=== PATIENT | female | born 1960 | race Caucasian/White ===

== ENCOUNTER → 2024-04-28 | Outpatient (CLI) | payer OTHER, SELFPAY ==
--- NOTE | 2024-04-28 | XR_ITS ---
Examination: Screening digital mammography, bilateral Computer aided detection 3-D breast Tomosynthesis, bilateral Date and time of exam: April 28, 2024 0953 hours Compared to mammograms dating to 02/07/2016 Indication: Screening Technique: Nonmagnified MLO, CC views of the breasts to been obtained, reconstructed from 3-D Tomosynthesis images. R2 computer aided detection program utilized for evaluation of suspicious masses and/or abnormal calcifications. 3-D Tomosynthesis images obtained. Findings: Scattered areas of fibroglandular density Benign calcifications. Skin lesion upper left breast No interval suspicious masses Impression: BI-RADS category II: Benign Findings. Recommend 1 year follow-up mammogram.
== END | disposition home or self-care (01) ==
LOC: CDIM 09:45
PROVIDERS: PCP Family Medicine; Referring Provider Family Medicine; Visit Provider Family Medicine
DX: Z12.31 Encounter for screening mammogram for malignant neoplasm of breast (principal); R92.323 Mammographic fibroglandular density, bilateral breasts; R92.1 Mammographic calcification found on diagnostic imaging of breast
CPT/HCPCS: 77063; 77067

== ENCOUNTER → 2024-05-31 | Outpatient (CLI) | payer OTHER, SELFPAY ==
[2024-05-31 10:34] LABS: Uric Acid 4.6 mg/dL (3.1-7.8)
== END | disposition home or self-care (01) ==
PROVIDERS: PCP Family Medicine; Referring Provider Family Medicine; Visit Provider Family Medicine
DX: E79.0 Hyperuricemia without signs of inflammatory arthritis and tophaceous disease (principal)
CPT/HCPCS: 36415; 84550

== ENCOUNTER → 2024-08-11 | Outpatient (CLI) | payer OTHER, SELFPAY ==
--- NOTE | 2024-08-11 13:52 | XR_ITS ---
Examination: Knee, right , 3 views Technique: Knee AP, lateral, oblique 3 views Date and time of exam: August 11, 2024 1354 hours INDICATIONS: Right knee pain beginning 6 years ago. FINDINGS: Moderate to advanced narrowing medial joint space No fracture Mild osteoarthritis patellofemoral joint IMPRESSION: Moderate to advanced narrowing medial joint space
--- NOTE | 2024-08-11 13:52 | XR_ITS ---
Examination: Bilateral wrists 6 views TECHNIQUE: AP oblique lateral each wrist total 6 views Exam date and time: August 11, 2024 1402 hours INDICATIONS: Bilateral wrist pain beginning 3 months ago. FINDINGS: Moderate osteopenia Mild diffuse narrowing radiocarpal intercarpal first carpometacarpal joints Small benign area cystic change in the triquetrum right wrist No avascular necrosis IMPRESSION: Mild diffuse osteoarthritis as above
--- NOTE | 2024-08-11 13:52 | XR_ITS ---
Examination: Bilateral hands, 6 views. Technique: AP, Oblique, Lateral each hand total 6 views Date and time of exam: August 11, 2024 1354 hours INDICATIONS: Bilateral hand pain 3 months FINDINGS: Moderate juxta-articular bone demineralization Mild osteoarthritis distal interphalangeal joints second through fifth digits and interphalangeal joint first digit bilaterally Mild to moderate osteoarthritis first carpometacarpal joints No erosive arthritis No opaque foreign bodies IMPRESSION: Osteoarthritis as above
== END | disposition home or self-care (01) ==
PROVIDERS: PCP Family Medicine; Visit Provider Family Medicine
DX: M25.861 Other specified joint disorders, right knee (principal); M19.042 Primary osteoarthritis, left hand; M19.041 Primary osteoarthritis, right hand; M18.0 Bilateral primary osteoarthritis of first carpometacarpal joints; M19.032 Primary osteoarthritis, left wrist; M19.031 Primary osteoarthritis, right wrist
CPT/HCPCS: 73110; 73130; 73562

== ENCOUNTER → 2024-12-08 | Outpatient (CLI) | payer OTHER, SELFPAY ==
--- NOTE | 2024-12-08 09:45 | XR_ITS ---
Examination: MRI right hip without intravenous contrast. Date and time of exam: December 08, 2024 1007 hours INDICATIONS: Right hip pain 10 years joint clicking Technique: Multiple MRI images of the right hip have been obtained T1 weighted coronal sections, TR 500, TE 12 Proton density coronal fat saturated images, TR 3000, TE 71 T2-weighted coronal images, 5850, TE 104 T1-weighted axial images, TR 521, TE 12 T2-weighted axial fat suppressed images, TR 5730, TE 103. Findings: Moderate narrowing right hip joint Adequate marrow signal right hip, no occult fracture bone contusion or marrow edema Negative for avascular necrosis No labral tears identified Artifacts generated by the patient's left hip arthroplasty IMPRESSION: Moderate narrowing right hip joint
--- NOTE | 2024-12-08 10:15 | XR_ITS ---
Exam: MRI knee without contrast, right Date and time of exam: December 08, 2024 1007 hours Comparison August 17, 2022 INDICATIONS: Right hip pain beginning 10 years ago Technique: Multiple axial, coronal, and sagittal sections on the knee have been obtained. T2-Weighted sagittal, fat-suppressed images, TR 3,500, TE 62, T2 weighted coronal fat-saturated images, TR 3,500, TE 62 Proton density sagittal sections, TR 1800, TE 31. T-1 weighted coronal images, TR 524, TE 13.0 Findings: Medial meniscus anterior horn intact. Medial meniscus, body is horizontal linear tear. Posterior horn medial meniscus oblique linear tear communicating inferior articular surface. Lateral meniscus anterior horn is intact Lateral meniscus, body is intact Posterior horn lateral meniscus is intact Anterior cruciate ligament moderate sprain Posterior cruciate ligament appears intact. Knee effusion is small. Quadriceps and patellar tendons appear intact. There is no evidence of tendinosis. Inflammatory change or fracture of Hoffa's fat pad is not seen. Medial patellar facet demonstrates moderate thinning. Lateral patellar facet cartilage demonstrates moderate thinning. Trochlear cartilage demonstrates moderate thinning. Marrow signal adequate. Medial collateral ligament appears intact. No meniscocapsular separation is seen. Illiotibial band and fibular collateral ligament are intact. Biceps femoris tendons appear intact. Medial femoral condylar articular cartilage demonstrates moderate thinning. Lateral femoral condylar articular cartilage demonstratesmoderate thinning. Tibial plateau cartilage demonstrates moderate thinning. Impression: Tears of the body and posterior horn medial meniscus Moderate sprain anterior cruciate ligament
== END | disposition home or self-care (01) ==
LOC: SMRI 09:30
PROVIDERS: PCP Family Medicine; Referring Provider Family Medicine; Visit Provider Family Medicine
DX: M25.851 Other specified joint disorders, right hip (principal); S83.241A Other tear of medial meniscus, current injury, right knee, initial encounter; X58.XXXA Exposure to other specified factors, initial encounter; S83.511A Sprain of anterior cruciate ligament of right knee, initial encounter
CPT/HCPCS: 73721

== ENCOUNTER 2025-01-18 08:56 | Outpatient (AMB) | payer OTHER, SELFPAY ==
[2025-01-18 09:16] VITALS: BP 132/83; PULSE 83; RESP 19; TEMP 36.3; O2SAT 96; BMI 32.8
--- NOTE | 2025-01-18 09:16 | PD.ORTHCLVIS ---
Vital signs 01/18/25 09:16 Height 1.57 m Height Method Stated Weight 81.278 kg Weight Measurement Method Standing Scale BMI 32.8 BP 132/83 H Blood Pressure Source Automatic Cuff Blood Pressure Location Left Upper Arm Position Sitting Respiration 19 Pulse 83 Pulse Source Monitor Temp 97.3 F Temp Source Temporal Artery Scan Pulse Oximetry (%) 96 Oxygen Delivery Method Room Air Med/Allergies Allergies & Medications Allergies pregabalin Allergy (Mild, Verified 01/18/25 09:17) Difficulty swallowing codeine Allergy (Verified 01/18/25 09:17) Medication Reconciliation ondansetron HCl 4 mg tablet (Zofran) 4 mg PO Q8H PRN nausea and vomiting #10 tabs 12/12/19 [Rx Confirmed 01/18/25] oxycodone-acetaminophen 5 mg-325 mg tablet (Percocet) 1 tab PO TID PRN pain #20 tabs 12/12/21 [Rx Confirmed 01/18/25] acetaminophen 500 mg capsule 1,000 mg (2 x 500 mg) PO TID #30 caps 01/17/23 [Rx Confirmed 01/18/25] ondansetron 4 mg disintegrating tablet 4 mg PO Q8H PRN nausea and vomiting #30 tabs 01/19/23 [Rx Confirmed 01/18/25] ciprofloxacin HCl 500 mg tablet 500 mg PO BID #14 tabs 07/21/23 [Rx Confirmed 01/18/25] metronidazole 500 mg tablet 500 mg PO TID #21 tabs 07/21/23 [Rx Confirmed 01/18/25] Exam Exam Patient is in no acute distress and is cooperative with the examination today. Breathing is nonlabored. In no respiratory distress. Bilateral extremities were evaluated and demonstrates sensation intact to light touch. Palpable pedal pulses are present. No significant edema is present. Bilateral hips were examined. The patient has no pain with log roll of the hips. Internal rotation to 30 degrees and external rotation to 30 degrees is painless. Negative FADIR. The left knee was examined. The left knee is in varus alignment. Range of motion from 0-115 degrees. Knee is stable to varus and valgus as well as AP translation with <5mm. Patient has a negative McMurrays. There is no pain with patellofemoral compression and no crepitus noted. The knee is tender to palpation medially. The right knee was also examined. The right knee is in varus alignment. Range of motion from 0-120 degrees. Knee is stable to varus and valgus as well as AP translation with <5mm. Patient has a negative McMurrays. There is no pain with patellofemoral compression and no crepitus noted. The knee is tender to palpation medially. The right hip is tender to palpation over the greater trochanteric Assessment and Plan Problem List (1) Arthritis of right hip: Status: Acute (2) Degenerative arthritis of knee, bilateral: Status: Acute Plan: Patient is a pleasant 64-year-old female with bilateral knee arthritis of moderate severity. We would like to get weightbearing x-rays. She also has trochanteric bursitis of her right hip. We discussed different treatment options. I would recommend conservative treatment as she does not have significant arthritis on her x-rays. I would recommend bilateral knee injections as well as a right hip injection. I would also try an anti-inflammatory. I will see her back after (3) Trochanteric bursitis: Status: Acute Office Procedures GNS Level of Care Nursing/Assessment Patient Status: Initial/New Patient Nursing Assessment/Reassesment: Medication Reconciliation, Update PMH in EMR and Vital Signs Coordination of Care: Complex Care and Chronic Disease 1-5, Education Complex Pt/Fam, Consent,records obtained, informed consent, 1 Ins Authorization, Lab and Imaging orders, Results/Orders obtained and Staff clarify orders New Patient Charge New Patient Point Assignment: 1124 New Patient Point Charge: [employer] Level 4 ([id number]) MA Intake Visit Data Collection New Patient or Established: New Patient (never been to [facility]) Reason for Visit:: RIGHT HIP/KNEE PAIN Seen by Clinical Staff ONLY (RN/MA): No PCP or OBGYN visit in last 3 months: Yes Hx Now: No Do You Feel Safe at Home: Yes Authorities Contacted: N/A Questionairres Past Medical History Past Medical History Have you ever been diagnosed with any of the following: Cardiology Problems Congestive Heart Failure: No Respiratory Problems Chronic Obstructive Pulmonary Disease (COPD): No Asthma: No Smoking: No Smoking Cessation Counseling: No Smoking Exposure: No Genital/Urinary Problems Renal Disease: No Endocrine Problems Diabetes Mellitus Type 1: No Diabetes Mellitus Type 2: No Blood Problems Sickle Cell Disease: No Surgical History Total Hip Replacement: Yes (LEFT-DR MORALES 2021) Total Knee Replacement: Yes Subjective Visit Visit for: new patient, hip and knee Immunization / Flu Flu Vaccine in the Last 12 Months: Yes Flu Vaccine Exclusion Criteria: Already Received History of Present Illness Chief complaint: LEFT WILDER DR MORALES 2021 Date of injury / onset of symptoms: 6+ YEARS WITH PAIN Patient is a 64-year-old female with a history of a left total hip replacement and persistent pain in both her hip and bilateral knees. She has had gel injections in her knees before. For the right hip she is a lot of pain on her side and has difficulty sleeping on that side. She reports that she feels like her leg lengths are unequal Personal History Occupation: [employer] BMI Counceling provided: Yes Pain Pain level (0-10): 6 Pain duration: ON AND OFF Pain location: inside (medial), outside (lateral) and anterior Pain quality: dull and aching Pain timing: stairs Associated signs & symptoms: none Ambulatory data Ambulatory device: none Treatments Number of previous injections: 0 Improvement with previous injections: No Improvement with PT: No Improvement with NSAIDS: no Review of Systems Review of Systems: All systems negative unless otherwise noted in HPI.
--- NOTE | 2025-01-18 09:36 | XR_ITS ---
Examination: Bilateral knees 2 views Right lateral knee left thyroid 2 views Bilateral axial knee single view TECHNIQUE: Bilateral AP knees standing single view, bilateral. Knees standing single view flexure Standing right laterally left lateral knee 2 views Bilateral axillary single view total 5 views Date and time: January 18, 2025 0947 hours, comparison August 11, 2024. INDICATIONS: Bilateral knee pain beginning several years ago. FINDINGS: Advanced narrowing medial joint space right knee [id number] osteoarthritis right patellofemoral joint No fracture Moderate narrowing medial joint space left knee [id number] osteoarthritis left patellofemoral joint No patellar dislocations IMPRESSION: Advanced narrowing medial joint space left knee
== END 2025-01-18 09:40 | disposition home or self-care (01) ==
LOC: HODSRG 08:56
PROVIDERS: PCP Family Medicine; Referring Provider Family Medicine; Supervising Provider Orthopaedic Surgery Adult Reconstructive Orthopaedic Surgery; Visit Provider Orthopaedic Surgery Adult Reconstructive Orthopaedic Surgery
DX: M16.11 Unilateral primary osteoarthritis, right hip (principal); M17.0 Bilateral primary osteoarthritis of knee; M70.61 Trochanteric bursitis, right hip
CPT/HCPCS: 73564; 99204; G0463

== ENCOUNTER 2025-02-03 14:35 | Outpatient (AMB) | payer OTHER, SELFPAY ==
--- NOTE | 2025-02-03 14:43 | ORTHONT_ITS ---
Vital signs 02/03/25 14:44 Height 1.57 m Height Method Measured Weight 81.306 kg Weight Measurement Method Standing Scale BMI 33.0 BP 132/83 H Blood Pressure Source Automatic Cuff Blood Pressure Location Left Upper Arm Position Sitting Respiration 18 Pulse 92 Pulse Source Monitor Temp 97.3 F Temp Source Temporal Artery Scan Pulse Oximetry (%) 95 Oxygen Delivery Method Room Air Med/Allergies Allergies & Medications Allergies pregabalin Allergy (Mild, Verified 02/03/25 14:45) Difficulty swallowing codeine Allergy (Verified 02/03/25 14:45) Medication Reconciliation ondansetron HCl 4 mg tablet (Zofran) 4 mg PO Q8H PRN nausea and vomiting #10 tabs 12/12/19 [Rx Confirmed 02/03/25] oxycodone-acetaminophen 5 mg-325 mg tablet (Percocet) 1 tab PO TID PRN pain #20 tabs 12/12/21 [Rx Confirmed 02/03/25] acetaminophen 500 mg capsule 1,000 mg (2 x 500 mg) PO TID #30 caps 01/17/23 [Rx Confirmed 02/03/25] ondansetron 4 mg disintegrating tablet 4 mg PO Q8H PRN nausea and vomiting #30 tabs 01/19/23 [Rx Confirmed 02/03/25] ciprofloxacin HCl 500 mg tablet 500 mg PO BID #14 tabs 07/21/23 [Rx Confirmed 02/03/25] metronidazole 500 mg tablet 500 mg PO TID #21 tabs 07/21/23 [Rx Confirmed 02/03] Exam Exam Patient is in no acute distress and is cooperative with the examination today. Breathing is nonlabored. In no respiratory distress. Bilateral extremities were evaluated and demonstrates sensation intact to light touch. Palpable pedal pulses are present. No significant edema is present. Bilateral hips were examined. The patient has no pain with log roll of the hips. Internal rotation to 30 degrees and external rotation to 30 degrees is painless. Negative FADIR. The left knee was examined. The left knee is in varus alignment. Range of motion from 0-115 degrees. Knee is stable to varus and valgus as well as AP translation with <5mm. Patient has a negative McMurrays. There is no pain with patellofemoral compression and no crepitus noted. The knee is tender to palpation medially. The right knee was also examined. The right knee is in varus alignment. Range of motion from 0-120 degrees. Knee is stable to varus and valgus as well as AP translation with <5mm. Patient has a negative McMurrays. There is no pain with patellofemoral compression and no crepitus noted. The knee is tender to palpation medially. The right hip is tender to palpation over the greater trochanteric Bilateral knee x-rays demonstrate significant arthritis of the right knee with moderate arthritis of the left Assessment and Plan Problem List (1) Arthritis of right hip: Status: Acute (2) Degenerative arthritis of knee, bilateral: Status: Acute Plan: Patient is a pleasant 64-year-old female with bilateral knee arthritis of moder ate severity. We would like to get weightbearing x-rays. We discussed a trochanteric bursa injection as well as bilateral knee injections. She would like to continue with conservative treatment. We discussed his severe arthritis of the right knee in particular. She would like bilateral knee cortisone injections as well as a right hip trochanteric bursa injection Recommend knee cortisone injection as patient would like to proceed with conservative treatment at this time. The risks and benefits of the procedure were reviewed with the patient and patient gave verbal consent to continue with the procedure. Procedure: performed by Dr. Hidalgo Using sterile technique the Right knee was thoroughly prepped with alcohol, and approximately 1 cc of Depo-Medrol 80mg/mL and 4 cc of 0.2% ropivacaine was injected without resistance into the medial tibial femoral joint space. The patient tolerated the procedure. Recommend knee cortisone injection as patient would like to proceed with conservative treatment at this time. The risks and benefits of the procedure were reviewed with the patient and patient gave verbal consent to continue with the procedure. Procedure: performed by Dr. Hidalgo Using sterile technique the left knee was thoroughly prepped with alcohol, and approximately 1 cc of Depo-Medrol 80mg/mL and 4 cc of 0.2% ropivacaine was injected without resistance into the medial tibial femoral joint space. The patient tolerated the procedure. Recommend right hip bursa cortisone injection as patient would like to proceed with conservative treatment at this time. The risks and benefits of the procedure were reviewed with the patient and patient gave verbal consent to continue with the procedure. Procedure: performed by Dr. Hidalgo Using sterile technique the right trochanteric region was thoroughly prepped with alcohol, and approximately 1 cc of Depo-Medrol 80mg/mL and 4 cc of 0.2% ropivacaine was injected without resistance. The patient tolerated the procedure. (3) Trochanteric bursitis: Status: Acute Office Procedures GNS Level of Care Nursing/Assessment Patient Status: Established Patient Nursing Assessment/Reassesment: Medication Reconciliation, Orthostatic Vitals, Update PMH in EMR and Vital Signs Coordination of Care: Complex Care and Chronic Disease 1-5, Education Complex Pt/Fam, Consent,records obtained, informed consent, Results/Orders obtained and Staff clarify orders Established Patient Charge Established Patient Point Assignment: 105 Established Patient Point Charge: EP Level 3 (80-115) Surgical Proc/IM SQ injection Major Surgical Procedure: Yes (BILATERAL KNEE/RIGHT HIP INJECTION) Medication Given Medication Given Medication Given: Yes Documented Dose Given: 1 Route: Infiitration Medication Given Medication Given Medication Given: Yes Documented Dose Given: 1 Route: Infiitration Medication Given Medication Given Medication Given: Yes Documented Dose Given: 1 Route: Infiitration Medication Given Medication Given Medication Given: Yes Documented Dose Given: 4 Route: Infiitration Medication Given Medication Given Medication Given: Yes Documented Dose Given: 4 Route: Infiitration Medication Given Medication Given Medication Given: Yes Documented Dose Given: 4 Route: Infiitration Office Meds methylprednisolone acetate 80 mg/mL suspension for injection Performing Provider: Mehul Hidalgo MD Performing Location: [facility] Administered by: Mehul Hidalgo MD on 02/03/25 15:13 Dose Route Admin Location Dispensed Lot Number Expiration Date Pack age [facility] Hospital Coordinator 80 mg intra-articular 1 mL methylprednisolone acetate 80 mg/mL suspension for injection Performing Provider: Mehul Hidalgo MD Performing Location: [facility] Administered by: Mehul Hidalgo MD on 02/03/25 15:13 Dose Route Admin Location Dispensed Lot Number Expiration Date Pack age [facility] Hospital Coordinator 80 mg intra-articular 1 mL methylprednisolone acetate 80 mg/mL suspension for injection Performing Provider: Mehul Hidalgo MD Performing Location: [facility] Administered by: Mehul Hidalgo MD on 02/03/25 15:13 Dose Route Admin Location Dispensed Lot Number Expiration Date Pack age [facility] Hospital Coordinator 80 mg intra-articular 1 mL ropivacaine (PF) 2 mg/mL (0.2 %) injection solution Performing Provider: Mehul Hidalgo MD Performing Location: [facility] Administered by: Mehul Hidalgo MD on 02/03/25 15:13 Dose Route Admin Location Dispensed Lot Number Expiration Date Pack age [facility] Hospital Coordinator 20 mL Infiltration 20 mL [id number] 06/24/27 59587-328-07 [id number] [facility] ropivacaine (PF) 2 mg/mL (0.2 %) injection solution Performing Provider: Mehul Hidalgo MD Performing Location: [facility] Administered by: Mehul Hidalgo MD on 02/03/25 15:13 Dose Route Admin Location Dispensed Lot Number Expiration Date Pack age [facility] Hospital Coordinator 20 mL Infiltration 20 mL [id number] 06/24/27 11308-580-89 4306 [id number] [facility] ropivacaine (PF) 2 mg/mL (0.2 %) injection solution Performing Provider: Mehul Hidalgo MD Performing Location: [facility] Administered by: Mehul Hidalgo MD on 02/03/25 15:13 Dose Route Admin Location Dispensed Lot Number Expiration Date Pack age [facility] Hospital Coordinator 20 mL Infiltration 20 mL [id number] 06/24/27 13048-334-39 [id number] [facility] [place] Intake Visit Data Collection New Patient or Established: Established Patient (seen at [facility] within 3 years) Reason for Visit:: RIGHT HIP/KNEE PAIN Seen by Clinical Staff ONLY (RN/MA): No Impress Associate Required: No PCP or OBGYN visit in last 3 months: Yes Hx Now: No Do You Feel Safe at Home: Yes Authorities Contacted: N/A Questionairres Past Medical History Past Medical History Have you ever been diagnosed with any of the following: Cardiology Problems Congestive Heart Failure: No Respiratory Problems Chronic Obstructive Pulmonary Disease (COPD): No Asthma: No Smoking: No Smoking Cessation Counseling: No Smoking Exposure: No Genital/Urinary Problems Renal Disease: No Endocrine Problems Diabetes Mellitus Type 1: No Diabetes Mellitus Type 2: No Blood Problems Sickle Cell Disease: No Surgical History Total Hip Replacement: Yes (LEFT-DR MORALES 2021) Total Knee Replacement: Yes Subjective Visit Visit for: follow up visit and knee Immunization / Flu Flu Vaccine in the Last 12 Months: Yes Flu Vaccine Exclusion Criteria: Already Received History of Present Illness Chief complaint: XRAY RESULTS/BILATERAL KNEE INJECTION Date of injury / onset of symptoms: 6+ YEARS WITH PAIN Patient is a 64-year-old female with a history of a left total hip replacement and persistent pain in both her hip and bilateral knees. She has had gel injections in her knees before. For the right hip she is a lot of pain on her side and has difficulty sleeping on that side. She reports that she feels like her leg lengths are unequal Personal History Occupation: [employer] BMI Counceling provided: Yes Pain Pain level (0-10): 6 Pain duration: ON AND OFF Pain location: inside (medial), outside (lateral) and anterior Pain quality: dull and aching Pain timing: stairs Associated signs & symptoms: none Ambulatory data Ambulatory device: none Treatments Number of previous injections: 0 Improvement with previous injections: No Improvement with PT: No Improvement with NSAIDS: no Review of Systems Review of Systems: All systems negative unless otherwise noted in HPI.
[2025-02-03 14:44] VITALS: BP 132/83; PULSE 92; RESP 18; TEMP 36.3; O2SAT 95; BMI 33.0
== END 2025-02-03 15:09 | disposition home or self-care (01) ==
LOC: HODSRG 14:35
PROVIDERS: PCP Family Medicine; Referring Provider Family Medicine; Supervising Provider Orthopaedic Surgery Adult Reconstructive Orthopaedic Surgery; Visit Provider Orthopaedic Surgery Adult Reconstructive Orthopaedic Surgery
DX: M16.11 Unilateral primary osteoarthritis, right hip (principal); M17.0 Bilateral primary osteoarthritis of knee; M70.61 Trochanteric bursitis, right hip; Z96.642 Presence of left artificial hip joint; M25.552 Pain in left hip; M25.551 Pain in right hip; M25.562 Pain in left knee; M25.561 Pain in right knee
CPT/HCPCS: 20610; 99213; J1010; J2795; G0463

== ENCOUNTER → 2025-04-29 | Outpatient (CLI) | payer OTHER, SELFPAY ==
[2025-04-29 10:18] LABS: Basophils # (Auto) 0.1 Thou/mm3 (0.0-0.2); Basophils % (Auto) 1 % (0-2.5); Eosinophils # (Auto) 0.1 Thou/mm3 (0.0-0.5); Eosinophils % (Auto) 1 % (0-10); Hematocrit 43.6 % (36.0-46.0); Hemoglobin 15.1 g/dL (12.0-16.0); Immature Granulocytes Auto 0.03 Thou/mm3 (0.00-0.00); Lymphocytes # (Auto) 2.1 Thou/mm3 (1.0-4.8); Lymphocytes % (Auto) 22 % (10-50); Mean Corpuscular HGB Conc 34.6 g/dl (31.0-37.0); Mean Corpuscular Hemoglobin 31.1 pg (25.0-35.0); Mean Corpuscular Volume 90 fL (80-100); Monocytes # (Auto) 0.7 Thou/mm3 (0.0-0.8); Monocytes % (Auto) 7 % (0-12); Neutrophils # (Auto) 6.3 Thou/mm3 (1.8-7.7); Neutrophils % (Auto) 68 % (37-80); Nucleated Red Blood Cell # 0.00 Thou/mm3 (0.00-0.00); Nucleated Red Blood Cell % 0 /100 WBC (0); Platelet Count 323 Thou/mm3 (140-440); RDW Standard Deviation 41.9 fL (36.4-46.3); Red Blood Count 4.86 Miln/mm3 (4.00-5.20); White Blood Count 9.3 Thou/mm3 (3.6-11.0)
[2025-04-29 10:36] LABS: Alanine Aminotransferase 15 U/L (10-49); Albumin, Serum 5.0 gm/dL (3.4-4.8); Albumin/Globulin Ratio 2.3 (1.2-2.2); Alkaline Phosphatase 72 U/L (46-116); Anion Gap 12 (7-16); Aspartate Amino Transferase 17 U/L (0-34); BUN/Creatinine Ratio 27 Ratio (12-20); Bilirubin,Total 0.6 mg/dL (0.3-1.2); Blood Urea Nitrogen 16 mg/dL (9-23); Calcium 9.3 mg/dL (8.3-10.6); Calcium (Corrected) 9.3 mg/dL (8.5-10.1); Carbon Dioxide 23.6 mMol/L (20.0-31.0); Cardiac Risk Estimate 3.5 RATIO (3.7-5.6); Chloride 107 mMol/L (98-107); Cholesterol 206 mg/dL (132-200); Creatinine (Component) 0.6 mg/dL (0.6-1.3); Free T4 (Free Thyroxine) 1.40 ng/dL (0.89-1.76); Globulin 2.2 gm/dL (2.3-3.5); Glucose 102 mg/dL (74-106); HDL Cholesterol 59 mg/dL (40-60); LDL Cholesterol,Calculated 132 mg/dL (0-130); Osmolality,Calculated 286 (275-295); Potassium 4.1 mMol/L (3.4-5.1); Sodium 143 mMol/L (136-145); Thyroid Stimulating Hormone 1.24 uIU/mL (0.55-4.78); Total Protein 7.2 gm/dL (5.7-8.2); Triglycerides 75 mg/dL (30-150); eGFR > 60 See Note
== END | disposition home or self-care (01) ==
LOC: COPL 09:14
PROVIDERS: PCP Family Medicine; Referring Provider Family Medicine; Visit Provider Family Medicine
DX: D50.0 Iron deficiency anemia secondary to blood loss (chronic) (principal); E78.1 Pure hyperglyceridemia; Z13.1 Encounter for screening for diabetes mellitus
CPT/HCPCS: 36415; 80053; 80061; 84439; 84443; 85025

== ENCOUNTER 2025-05-05 12:52 | Outpatient (AMB) | payer OTHER, SELFPAY ==
--- NOTE | 2025-05-05 13:18 | ORTHONT_ITS ---
Vital signs 05/05/25 13:19 Height 1.57 m Height Method Measured Weight 81.193 kg Weight Measurement Method Standing Scale BMI 32.9 BP 122/80 Blood Pressure Source Automatic Cuff Blood Pressure Location Left Upper Arm Position Sitting Respiration 18 Pulse 73 Pulse Source Monitor Temp 97.4 F Temp Source Temporal Artery Scan Pulse Oximetry (%) 96 Oxygen Delivery Method Room Air Med/Allergies Allergies & Medications Allergies pregabalin Allergy (Mild, Verified 05/05/25 13:19) Difficulty swallowing codeine Allergy (Verified 05/05/25 13:19) Medication Reconciliation ondansetron HCl 4 mg tablet (Zofran) 4 mg PO Q8H PRN nausea and vomiting #10 tabs 12/12/19 [Rx Confirmed 05/05/25] oxycodone-acetaminophen 5 mg-325 mg tablet (Percocet) 1 tab PO TID PRN pain #20 tabs 12/12/21 [Rx Confirmed 05/05/25] acetaminophen 500 mg capsule 1,000 mg (2 x 500 mg) PO TID #30 caps 01/17/23 [Rx Confirmed 05/05/25] ondansetron 4 mg disintegrating tablet 4 mg PO Q8H PRN nausea and vomiting #30 tabs 01/19/23 [Rx Confirmed 05/05/25] ciprofloxacin HCl 500 mg tablet 500 mg PO BID #14 tabs 07/21/23 [Rx Confirmed 05/05/25] metronidazole 500 mg tablet 500 mg PO TID #21 tabs 07/21/23 [Rx Confirmed 05/05/25] Exam Exam Patient is in no acute distress and is cooperative with the examination today. Breathing is nonlabored. In no respiratory distress. Bilateral extremities were evaluated and demonstrates sensation intact to light touch. Palpable pedal pulses are present. No significant edema is present. Bilateral hips were examined. The patient has no pain with log roll of the hips. Internal rotation to 30 degrees and external rotation to 30 degrees is painless. Negative FADIR. The left knee was examined. The left knee is in varus alignment. Range of motion from 0-115 degrees. Knee is stable to varus and valgus as well as AP translation with <5mm. Patient has a negative McMurrays. There is no pain with patellofemoral compression and no crepitus noted. The knee is tender to palpation medially. The right knee was also examined. The right knee is in varus alignment. Range of motion from 0-120 degrees. Knee is stable to varus and valgus as well as AP translation with <5mm. Patient has a negative McMurrays. There is no pain with patellofemoral compression and no crepitus noted. The knee is tender to palpation medially. Bilateral knee x-rays demonstrate significant arthritis of the right knee with moderate arthritis of the left Assessment and Plan Problem List (1) Arthritis of right hip: Status: Acute (2) Degenerative arthritis of knee, bilateral: Status: Acute Plan: Patient is a pleasant 64-year-old female with bilateral knee arthritis of severe severity on the right as well as moderate arthritis of the left knee. She has failed conservative treatment and we thus discussed total knee replacement as a reasonable option for the right. She would like to get a cortisone injection of her left knee as well today Recommend knee cortisone injection as patient would like to proceed with conservative treatment at this time. The risks and benefits of the procedure were reviewed with the patient and patient gave verbal consent to continue with the procedure. Procedure: performed by Dr. Hidalgo Using sterile technique the left knee was thoroughly prepped with alcohol, and approximately 1 cc of Depo-Medrol 80mg/mL and 4 cc of 0.2% ropivacaine was injected without resistance into the medial tibial femoral joint space. The patient tolerated the procedure. The nature and purpose of the total knee replacement, alternative method(s) of treatment, the material risks involved, and the possibility of complications were fully explained to the patient. The patient does NOT have any of the following contraindications to TKA: - Active infection of the knee joint, OR - Active systemic bacteremia, OR - Active skin infection or open wound at surgical site, OR - Neuropathic arthritis, OR - Severe, rapidly progressive neurological disease, OR - Severe medical condition that makes risks of surgery outweigh the potential benefit. ?The patient was told the most common risks and complications associated with a total knee replacement include, but are not limited to: blood clots in the leg, stiffness, fatal pulmonary embolism, dislocation of the prosthesis, intraoperative and postoperative fractures of the femur or tibia, infection, failure of the prosthesis or grafting materials, complications from anesthesia, reactions to blood transfusions, postoperative leg length inequality, instability of the knee replacement, nerve damage or injury, vascular injury, delayed wound healing, infection, other injury or even . In addition, there are risks associated with anesthesia given during this operation. Also, the patient was told that after undergoing a total knee replacement there may still be persistent pain or disability. The patient was informed that the success of this operation in part depends upon the mechanical devices which are going to be implanted and that these devices can fail or malfunction, and may need to be repaired or replaced and there are no guarantees as to the longevity of this device or its parts and that it or its parts could fail prematurely. The importance of compliance with physical therapy was also discussed with the patient. The patient was also notified that during the course of surgery, there may be a need to use bone graft from donors, and that any bone graft used will be carefully screened for communicable diseases, including AIDS, hepatitis, Robert-Creutzfeldt, or other diseases, but despite the screening procedures, there is a small chance that they could contract one of these diseases. Finally, the patient was asked to follow completely and fully with all advice and recommended treatments, and that recovery and ultimate outcome are affected by their compliance with recommended treatment. We discussed the risks, benefits and treatment alternatives, and the patient is interested in proceeding with surgery. We will try to set this up as expeditiously as possible. (3) Trochanteric bursitis: Status: Acute Office Procedures GNS Level of Care Nursing/Assessment Patient Status: Established Patient Nursing Assessment/Reassesment: Medication Reconciliation, Update PMH in EMR and Vital Signs Coordination of Care: Complex Care and Chronic Disease 1-5, Education Complex Pt/Fam, Consent,records obtained, informed consent, Results/Orders obtained and Staff clarify orders Established Patient Charge Established Patient Point Assignment: 95 Established Patient Point Charge: EP Level 3 (80-115) Surgical Proc/IM SQ injection Minor Surgical Procedure: Yes (KNEE INJECTION) Medication Given Medication Given Medication Given: Yes Documented Dose Given: 1 Route: Infiitration Medication Given Medication Given Medication Given: Yes Documented Dose Given: 4 Route: Infiitration Office Meds methylprednisolone acetate 80 mg/mL suspension for injection Performing Provider: Mehul Hidalgo MD Performing Location: [facility] Administered by: Mehul Hidalgo MD on 05/05/25 15:07 Dose Route Admin Location Dispensed Lot Number Expiration Date Pack age [facility] [employer] 80 mg intra-articular KNEE 1 mL [id number] 01/23/27 [address]-6 [id number] [employer] ropivacaine (PF) 2 mg/mL (0.2 %) injection solution Performing Provider: Mehul Hidalgo MD Performing Location: [facility] Administered by: Mehul Hidalgo MD on 05/05/25 15:07 Dose Route Admin Location Dispensed Lot Number Expiration Date Pack age [facility] [employer] Libr[employer] 20 mL Infiltration KNEE 20 mL [id number] 06/25/27 20828-101-16 [id number] [facility] Intake Visit Data Collection New Patient or Established: Established Patient (seen at [facility] within 3 years) Reason for Visit:: BILATERAL KNEE/RIGHT HIP INJECTION Seen by Clinical Staff ONLY (RN/MA): No [employer] Officers [employer] Required: No PCP or OBGYN visit in last 3 months: Yes Hx Now: No Do You Feel Safe at Home: Yes Authorities Contacted: N/A Questionairres Past Medical History Past Medical History Have you ever been diagnosed with any of the following: Cardiology Problems Congestive Heart Failure: No Respiratory Problems Chronic Obstructive Pulmonary Disease (COPD): No Asthma: No Smoking: No Smoking Cessation Counseling: No Smoking Exposure: No Genital/Urinary Problems Renal Disease: No Endocrine Problems Diabetes Mellitus Type 1: No Diabetes Mellitus Type 2: No Blood Problems Sickle Cell Disease: No Surgical History Total Hip Replacement: Yes (LEFT-DR MORALES 2021) Total Knee Replacement: Yes Subjective Visit Visit for: follow up visit, hip and knee Immunization / Flu Flu Vaccine in the Last 12 Months: Yes Flu Vaccine Exclusion Criteria: Already Received History of Present Illness Chief complaint: BILATERAL KNEE/RIGHT HIP INJECTION Date of injury / onset of symptoms: 6+ YEARS WITH PAIN Patient is a 64-year-old female with a history of a left total hip replacement and persistent pain in both her hip and bilateral knees. She has had gel injections in her knees before. For the right hip she is a lot of pain on her side and has difficulty sleeping on that side. She reports that she feels like her leg lengths are unequal She did well with the bursa injections when last saw her. Her knee pain is what is bothering her the most currently. She reports the right knee is significantly worse than the left. She has tried injections in the past as well as anti-inflammatories Personal History Occupation: [employer] BMI Counceling provided: Yes Pain Pain level (0-10): 6 Pain duration: ON AND OFF Pain location: inside (medial), outside (lateral) and anterior Pain quality: dull and aching Pain timing: stairs Associated signs & symptoms: none Ambulatory data Ambulatory device: none Treatments Number of previous injections: 0 Improvement with previous injections: No Improvement with PT: No Improvement with NSAIDS: no Review of Systems Review of Systems: All systems negative unless otherwise noted in HPI.
[2025-05-05 13:19] VITALS: BP 122/80; PULSE 73; RESP 18; TEMP 36.3; O2SAT 96; BMI 32.9
== END 2025-05-05 13:45 | disposition home or self-care (01) ==
LOC: HODSRG 12:52
PROVIDERS: PCP Family Medicine; Referring Provider Family Medicine; Supervising Provider Orthopaedic Surgery Adult Reconstructive Orthopaedic Surgery; Visit Provider Orthopaedic Surgery Adult Reconstructive Orthopaedic Surgery
DX: M16.11 Unilateral primary osteoarthritis, right hip (principal); M17.0 Bilateral primary osteoarthritis of knee; Z96.642 Presence of left artificial hip joint; M70.60 Trochanteric bursitis, unspecified hip
CPT/HCPCS: 20610; 99213; J1010; J2795; G0463